=== PATIENT | female | born 1970 | race Caucasian/White ===

== ENCOUNTER → 2020-07-08 11:04 | Outpatient (BNVA) | payer SELFPAY | PROVIDERS: Family Provider Family Medicine; Visit Provider Nurse Practitioner Family | DX: R19.5 Other fecal abnormalities (principal); R58 Hemorrhage, not elsewhere classified | CPT/HCPCS: 82274; 85025 ==

== ENCOUNTER → 2020-12-13 09:16 | Outpatient (BNVA) | payer MEDICAID, SELFPAY | PROVIDERS: Family Provider Family Medicine; PCP Family Medicine; Visit Provider Family Medicine | DX: R53.83 Other fatigue (principal); Z13.1 Encounter for screening for diabetes mellitus; Z13.6 Encounter for screening for cardiovascular disorders; R68.89 Other general symptoms and signs | CPT/HCPCS: 80053; 80061; 82607; 82652; 84443; 85025; 86617 ==

== ENCOUNTER → 2020-12-19 14:21 | Outpatient (BNVA) | payer MEDICAID, SELFPAY | PROVIDERS: Family Provider Family Medicine; PCP Family Medicine; Visit Provider Specialist | DX: G31.84 Mild cognitive impairment of uncertain or unknown etiology (principal); F17.210 Nicotine dependence, cigarettes, uncomplicated | CPT/HCPCS: 96116; 99205 ==

== ENCOUNTER → 2021-02-09 09:41 | Outpatient (BNVA) | payer SELFPAY ==
[2021-01-10 15:35] VITALS: BP 104/48; BMI 27.2
== END ==
PROVIDERS: Family Provider Family Medicine; PCP Family Medicine; Visit Provider Specialist
DX: G31.84 Mild cognitive impairment of uncertain or unknown etiology (principal); R44.2 Other hallucinations; F17.200 Nicotine dependence, unspecified, uncomplicated
CPT/HCPCS: 95816

== ENCOUNTER → 2021-02-27 09:26 | Outpatient (BNVA) | payer MEDICAID, SELFPAY ==
[2021-01-10 15:35] VITALS: BP 104/48; BMI 27.2
== END ==
PROVIDERS: Family Provider Family Medicine; PCP Family Medicine; Visit Provider Specialist
DX: R56.9 Unspecified convulsions (principal); R41.3 Other amnesia; F17.200 Nicotine dependence, unspecified, uncomplicated
CPT/HCPCS: 95816

== ENCOUNTER → 2021-04-06 14:48 | Outpatient (BNVA) | payer MEDICAID, SELFPAY ==
[2021-01-10 15:35] VITALS: BP 104/48; BMI 27.2
== END ==
PROVIDERS: Family Provider Family Medicine; PCP Family Medicine; Visit Provider Specialist
DX: G31.84 Mild cognitive impairment of uncertain or unknown etiology (principal); F32.3 Major depressive disorder, single episode, severe with psychotic features; F43.10 Post-traumatic stress disorder, unspecified; Z87.820 Personal history of traumatic brain injury
CPT/HCPCS: 99214

== ENCOUNTER → 2021-09-25 09:49 | Outpatient (BNVA) | payer MEDICAID, SELFPAY ==
[2021-01-10 15:35] VITALS: BP 104/48; BMI 27.2
== END ==
PROVIDERS: Family Provider Family Medicine; PCP Family Medicine; Visit Provider Nurse Practitioner Family
DX: Z20.822 Contact with and (suspected) exposure to COVID-19 (principal); J32.0 Chronic maxillary sinusitis; J40 Bronchitis, not specified as acute or chronic; F17.200 Nicotine dependence, unspecified, uncomplicated; R11.0 Nausea
CPT/HCPCS: 87635

== ENCOUNTER → 2021-12-06 11:41 | Outpatient (BNVA) | payer OTHER, SELFPAY ==
[2021-12-05 15:28] VITALS: BP 104/48; BMI 27.2
== END ==
PROVIDERS: Family Provider Family Medicine; PCP Family Medicine; Visit Provider Psychiatry & Neurology Neurology
DX: Z79.899 Other long term (current) drug therapy (principal)
CPT/HCPCS: 36415; 80061; 83036

== ENCOUNTER 2021-12-30 13:56 | Outpatient (CLI) | payer MEDICAID, SELFPAY ==
[2021-01-10 15:35] VITALS: BP 104/48; BMI 27.2
[2021-12-08 15:47] VITALS: BP 129/83; BMI 25.8
--- NOTE | 2021-12-30 14:45 | MR_ITS ---
WS: [id number] MRI BRAIN WITHOUT CONTRAST HISTORY: G31.84 - Mild cognitive impairment, so stated COMPARISON: None available. TECHNIQUE: Diffusion imaging, multiplanar T1, T2 and FLAIR imaging obtained. No evidence for acute infarct or hemorrhage. Huynh-white matter differentiation is normal. No significant atrophy or focal infarcts. There are numerous bilateral T2 and FLAIR signal hyperinten sities predominantly in the subcortical white matter distribution. Expected for a patient of this age . No hemorrhage. Ventricles and extra-axial spaces are normal. No inferior displacement of cerebellar tonsils. Arachnoid cyst retrocerebellar measures 23 x 8 mm. Se lla turcica and pituitary gland are unremarkable. Dural venous sinuses and [place] demonstrate no abnormality on this unenhanced studies. Paranasal sinuses: Mild bilateral mucoperiosteal thickening in the maxillary, frontal and ethmoid air cells. No air-fluid levels. Mastoid air cells: Normal. Calvarium and scalp: Intact. MR/MR head wo con* [id number] IMPRESSION: 1. No acute infarct or prior hemorrhage. 2. Bilateral diffuse subcortical T2 and FLAIR signal abnormalities. Nonspecifi c can be seen in a history of diabetes, migraines, smoking and small end vessel disease.
== END 2021-12-30 13:57 | disposition home or self-care (01) ==
PROVIDERS: Family Provider Family Medicine; PCP Family Medicine; Visit Provider Specialist
DX: G31.84 Mild cognitive impairment of uncertain or unknown etiology (principal); R56.9 Unspecified convulsions; R93.0 Abnormal findings on diagnostic imaging of skull and head, not elsewhere classified
CPT/HCPCS: 70551

== ENCOUNTER → 2022-03-27 13:21 | Outpatient (BNVA) | payer MEDICAID, SELFPAY ==
[2021-12-08 15:47] VITALS: BP 129/83; BMI 25.8
== END ==
PROVIDERS: Family Provider Family Medicine; PCP Family Medicine; Referring Provider Specialist; Visit Provider Specialist
DX: G43.909 Migraine, unspecified, not intractable, without status migrainosus (principal); G31.84 Mild cognitive impairment of uncertain or unknown etiology; Z87.820 Personal history of traumatic brain injury; G37.9 Demyelinating disease of central nervous system, unspecified
CPT/HCPCS: 99214

== ENCOUNTER → 2022-06-19 09:59 | Outpatient (BNVA) | payer MEDICAID, SELFPAY ==
[2021-12-08 15:47] VITALS: BP 129/83; BMI 25.8
== END ==
PROVIDERS: Family Provider Family Medicine; PCP Family Medicine; Visit Provider Nurse Practitioner Family
DX: Z20.822 Contact with and (suspected) exposure to COVID-19 (principal)
CPT/HCPCS: 87426

== ENCOUNTER → 2023-01-02 12:28 | Outpatient (BNVA) | payer MEDICAID, SELFPAY ==
[2021-12-08 15:47] VITALS: BP 129/83; BMI 25.8
== END ==
PROVIDERS: Family Provider Family Medicine; PCP Family Medicine; Visit Provider Psychiatry & Neurology Neurology
DX: F41.1 Generalized anxiety disorder (principal)
CPT/HCPCS: 80061; 83036; 83721

== ENCOUNTER 2023-02-06 12:02 | Outpatient (CLI) | payer MEDICAID, SELFPAY ==
[2023-01-07 11:57] VITALS: BP 128/77; BMI 29.4
--- NOTE | 2023-02-06 12:30 | CT_ITS ---
WS: [id number] CT SINUSES TECHNIQUE: Noncontrast CT of the paranasal sinuses with coronal and sagittal reformatted images. CLINICAL INFORMATION: S02.92XA - Unspecified fracture of facial bones, initial ... COMPARISON: None. DLP: 349.[address] scans at [facility] use at least one of these dose optimization techniques: automated e xposure control; mA and/or kV adjustment per patient size (includes targeted exams where dose is matc hed to clinical indication); or iterative reconstruction. FINDINGS: Nasal septal deviation LEFT to RIGHT measuring 4.4 mm. Polypoid mucosal thickening in the paranasal s inuses with partial opacification ethmoid air cells. Trace mucosal thickening in the frontal sinuses. Mild mucosal thickening in the frontal ethmoidal recesses. Trace fluid in the maxillary sinuses bila terally. Small retention cyst or polyps in the LEFT maxillary sinus. Sphenoid sinuses are well aerate d. Small amount of layering fluid in the sphenoid sinuses. Mucosal thickening along the sphenoid sinu s ostia. Mastoid air cells are well aerated. Normal posterior nasopharynx. Middle ears are well aerated bilate rally. CT/CT sinus wo con* [id number] IMPRESSION: 1. Nasal septal deviation LEFT to RIGHT measuring 4.4 mm. 2. Polypoid mucosal thickening involving the paranasal sinuses with partial op acification ethmoid air cells. 3. Tiny amount of fluid compatible with sinusitis in the maxillary sinuses and sphenoid sinuses. 4. Small retention cysts or polyps in the LEFT maxillary sinus measuring 10 to 11 mm. 5. Narrowing of the ostiomeatal units bilaterally with mucosal thickening. 6. Mucosal thickening with partial opacification of the frontal ethmoidal rece sses. 7. Mastoid air cells well aerated.
== END 2023-02-06 12:03 | disposition home or self-care (01) ==
LOC: RAD 12:04
PROVIDERS: PCP Family Medicine; Visit Provider Emergency Medicine
DX: S02.92XA Unspecified fracture of facial bones, initial encounter for closed fracture (principal); X58.XXXA Exposure to other specified factors, initial encounter; J32.9 Chronic sinusitis, unspecified; J34.2 Deviated nasal septum; J34.1 Cyst and mucocele of nose and nasal sinus
CPT/HCPCS: 70486

== ENCOUNTER → 2023-04-22 09:22 | Outpatient (BNVA) | payer MEDICAID, OTHER, SELFPAY ==
[2023-01-07 11:57] VITALS: BP 128/77; BMI 29.4
== END ==
PROVIDERS: PCP Family Medicine; Visit Provider Nurse Practitioner Family
DX: R07.89 Other chest pain (principal)
CPT/HCPCS: 71046

== ENCOUNTER → 2023-08-21 13:26 | Outpatient (BNVA) | payer MEDICAID, SELFPAY ==
[2023-01-07 11:57] VITALS: BP 128/77; BMI 29.4
== END ==
PROVIDERS: PCP Family Medicine; Visit Provider Family Medicine
DX: R00.2 Palpitations (principal); I34.1 Nonrheumatic mitral (valve) prolapse; Z91.018 Allergy to other foods; J30.2 Other seasonal allergic rhinitis; R06.02 Shortness of breath; R29.6 Repeated falls; H65.93 Unspecified nonsuppurative otitis media, bilateral
CPT/HCPCS: 80053; 83735; 84439; 84443; 84481; 85025; 93005

== ENCOUNTER → 2023-08-27 16:15 | Outpatient (BNVA) | payer MEDICAID, SELFPAY ==
[2023-01-07 11:57] VITALS: BP 128/77; BMI 29.4
== END ==
PROVIDERS: PCP Family Medicine; Visit Provider Internal Medicine
DX: R00.0 Tachycardia, unspecified (principal); R00.1 Bradycardia, unspecified
CPT/HCPCS: 93270

== ENCOUNTER 2023-09-02 14:00 | Outpatient (CLI) | payer MEDICAID, SELFPAY ==
[2023-01-07 11:57] VITALS: BP 128/77; BMI 29.4
--- NOTE | 2023-09-02 14:30 | USCV_ITS ---
Iman Hilton Age: 52 Gender: F : 1970 Exam Date: 09/02/2023 14:33 Ordering Phys: Fabiana Gonzalez MD Technologist: Rosalina Reed Exam Location: [facility] [place] Indication: Family history of CAD Irregular Heart Rate BP: / HR: 61 Rhythm: Sinus Technical Quality: Adequate MEASUREMENTS (Male / Female) Normal Values 2D ECHO LV Diastolic Diameter PLAX 3.7 cm 4.2 - 5.9 / 3.9 - 5.3 cm LV Systolic Diameter PLAX 2.7 cm LV Chamber Size 2.8 cm IVS Diastolic Thickness 1.0 cm 0.6 - 1.0 / 0.6 - 0.9 cm IVS Systolic Thickness 1.2 cm LVPW Diastolic Thickness 1.2 cm 0.6 - 1.0 / 0.6 - 0.9 cm LVPW Systolic Thickness 1.2 cm RV Chamber Size 3.2 cm LVOT Diameter 2.0 cm LV Ejection Fraction 2D Teich 52.8 % LV Ejection Fraction MOD 2C 27.8 % LV Ejection Fraction 2C AL 26.9 % LA Diameter 2.6 cm LA Width 2.6 cm LA Height 3.3 cm RA Width 4.2 cm RA Height 4.3 cm Aorta at Sinotubular Diameter 2.7 cm IVC Diameter 1.6 cm M-MODE Aortic Annulus Diameter 3.1 cm LA Ao Ratio MM 1.0 MV E Point Septal Separation 0.1 cm DOPPLER AV Peak Velocity 109.0 cm/s LVOT Peak Velocity 92.0 cm/s AV Area Cont Eq vti 2.8 cm squared AV Area Cont Eq pk 2.7 cm squared MV Area PHT 3.2 cm squared Mitral E to A Ratio 1.1 MV E' Velocity 41.0 cm/s Mitral E to MV E' Ratio 8.4 Mitral E to LV E' Lateral Ratio 8.0 Mitral E to LV E' Septal Ratio 9.1 TR Peak Velocity 199.4 cm/s TR Peak Gradient 15.9 mmHg TR Mean Velocity 153.6 cm/s TR Mean Gradient 10.8 mmHg TR Velocity Time Integral 70.8 cm TV Peak E Velocity 59.0 cm/s Right Atrial Pressure 3.0 mmHg Pulmonary Artery Systolic Pressu 18.9 mmHg RV Acceleration Time 0.1 s RV Ejection Time 0.4 s RV AcT/ET 0.4 FINDINGS Left Ventricle Left ventricle is normal in size. LV systolic function is normal with EF of 55 to 60%. No regional wall motion abnormalities are seen Right Ventricle Normal in size and function Right Atrium Normal in size Left Atrium Normal in size Mitral Valve Structurally normal mitral valve. Trace mitral regurgitation Aortic Valve Structurally normal aortic valve. No significant stenosis or regurgitation seen Tricuspid Valve Mild tricuspid regurgitation. Pulmonary artery systolic pressure is normal. Pulmonic Valve Not well visualized Pericardium Normal Aorta Normal in size IVC Appears to be normal CONCLUSIONS LV systolic function is normal with EF of 55 to 60%. Trace mitral regurgitation. Mild tricuspid regurgitation. No comparison studies are available Rafael Webber MD (Electronically Signed) Final Date: 16 September 2023 09:37 S
== END 2023-09-02 14:01 | disposition home or self-care (01) ==
LOC: RAD 14:02
PROVIDERS: PCP Family Medicine; Visit Provider Family Medicine
DX: R06.02 Shortness of breath (principal); R00.2 Palpitations; I34.1 Nonrheumatic mitral (valve) prolapse
CPT/HCPCS: 93306

== ENCOUNTER 2023-11-28 10:05 | Outpatient (CLI) | payer MEDICAID, SELFPAY ==
[2023-01-07 11:57] VITALS: BP 128/77; BMI 29.4
--- NOTE | 2023-11-28 11:00 | MM_ITS ---
WS: [id number] BILATERAL 3D TOMOSYNTHESIS DIGITAL SCREENING MAMMOGRAPHY WITH CAD CLINICAL INFORMATION: Z12.39 - Encounter for other screening for malignant neop... HISTORY: Screening mammogram. No current complaints. COMPARISON: 2019 TECHNIQUE: Bilateral CC and MLO views. FINDINGS: The breasts are composed of heterogeneous fibroglandular density tissue, which can limit the detectio n of small underlying mass lesions. No suspicious mass, asymmetry, calcifications, or architectural d istortion. No evidence of malignancy. Incidental punctate calcifications LEFT breast. MM/[place] [id number] IMPRESSION: BI-RADS: 2-Benign FOLLOW UP: 1 Year Follow-up Recommend return to annual screening mammography.
== END 2023-11-28 10:06 | disposition home or self-care (01) ==
LOC: MOBLMAM 10:11
PROVIDERS: PCP Family Medicine; Visit Provider Family Medicine
DX: Z12.31 Encounter for screening mammogram for malignant neoplasm of breast (principal); R92.333 Mammographic heterogeneous density, bilateral breasts
CPT/HCPCS: 77063; 77067

== ENCOUNTER 2023-12-06 13:06 | Outpatient (CLI) | payer MEDICAID, SELFPAY ==
[2023-01-07 11:57] VITALS: BP 128/77; BMI 29.4
--- NOTE | 2023-12-06 13:45 | MR_ITS ---
WS: [id number] MRI HEAD WITHOUT CONTRAST TECHNIQUE: Sagittal T1, T2 axial, T2 axial FLAIR, axial and coronal T1 images, axial susceptibility w eighted imaging, axial diffusion weighted images, and coronal T2 images were obtained. CLINICAL INFORMATION: G37.9 - Demyelinating disease of central nervous system, ... COMPARISON: MRI 12/30/2021 FINDINGS: Mild to moderate patchy supratentorial white matter changes compatible with history of demy elinating disease. The number and distribution of lesions is not significantly changed compared to 12/30/2021. No significant parenchymal volume loss. Normal brainstem. Temporal lobes and hippocampal form ations are normal in appearance. No significant atrophy of the corpus callosum. No significant T1 hyp ointense lesion load. Gadolinium not administered. No evidence of restricted diffusion to suggest acute ischemia. Ventricular system and basal cisterns are patent. Normal posterior fossa. Normal vascular flow voids at the skull base. No extra-axial flui d collections. No evidence of mass or mass effect. Mild mucosal thickening in the paranasal sinuses. Retention cyst or polyp LEFT maxillary sinus measuring 1.4 cm. Incidental slightly low-lying cerebell ar tonsils. Mastoid air cells are well aerated. No hemosiderin on the susceptibility weighted images. Normal optic chiasm and pituitary infundibulum. MR/MR head wo con* [id number] IMPRESSION: 1. Mild to moderate patchy supratentorial white matter changes compatible with history of demyelinating disease. The number and distribution of lesions is no t significantly changed compared to 12/30/2021. 2. No significant parenchymal volume loss. 3. No visualized infratentorial lesions. 4. No significant atrophy of the corpus callosum. 5. No hemosiderin on the susceptibility weighted images. 6. No other suspicious findings.
== END 2023-12-06 13:07 | disposition home or self-care (01) ==
LOC: RAD 13:07
PROVIDERS: PCP Family Medicine; Visit Provider Family Medicine
DX: G37.9 Demyelinating disease of central nervous system, unspecified (principal); Z87.820 Personal history of traumatic brain injury; R56.9 Unspecified convulsions; R29.6 Repeated falls
CPT/HCPCS: 70551

== ENCOUNTER → 2023-12-24 14:44 | Outpatient (BNVA) | payer MEDICAID, SELFPAY ==
[2023-01-07 11:57] VITALS: BP 128/77; BMI 29.4
== END ==
PROVIDERS: PCP Family Medicine; Visit Provider Specialist
DX: M54.16 Radiculopathy, lumbar region (principal); G43.019 Migraine without aura, intractable, without status migrainosus; F07.81 Postconcussional syndrome; G31.84 Mild cognitive impairment of uncertain or unknown etiology; Z87.820 Personal history of traumatic brain injury; G37.9 Demyelinating disease of central nervous system, unspecified
CPT/HCPCS: 96116; 99214; 99215

== ENCOUNTER → 2024-04-16 09:26 | Outpatient (BNVA) | payer MEDICAID, SELFPAY ==
[2023-01-07 11:57] VITALS: BP 128/77; BMI 29.4
== END ==
PROVIDERS: PCP Family Medicine; Referring Provider Psychiatry & Neurology Psychiatry; Visit Provider Psychiatry & Neurology Psychiatry
DX: Z79.899 Other long term (current) drug therapy (principal)
CPT/HCPCS: 80061; 83036

== ENCOUNTER → 2025-02-09 15:14 | Outpatient (BNVA) | payer OTHER, SELFPAY ==
[2025-01-15 07:52] VITALS: BP 110/74; BMI 28.5
== END ==
PROVIDERS: PCP Family Medicine; Referring Provider Psychiatry & Neurology Psychiatry; Visit Provider Psychiatry & Neurology Psychiatry
DX: F41.1 Generalized anxiety disorder (principal); F33.2 Major depressive disorder, recurrent severe without psychotic features
CPT/HCPCS: 80061; 83036